=== PATIENT | female | born 1945 | race Caucasian/White ===

== ENCOUNTER 2019-07-01 14:37 | Outpatient (CLI) | payer MEDICARE, OTHER, SELFPAY ==
[2019-07-01 15:28] LABS: Basophils % 0.5 %; Eosinophils # 0.3 10^3/uL (0.0-0.8); Eosinophils % 4.4 %; Hematocrit 31.7 % (37.0-47.0); Hemoglobin 10.2 g/dL (11.5-15.3); Lymphocytes # 2.1 10^3/uL (0.8-4.8); Lymphocytes % 32.8 %; Mean Corpuscular HGB Conc 32.2 g/dL (30.0-36.0); Mean Corpuscular Hemoglobin 32.1 pg (28.0-34.0); Mean Corpuscular Volume 99.7 fL (81-99); Mean Platelet Volume 10.5 fL (7.4-10.4); Monocytes # 0.9 10^3/uL (0.2-0.9); Monocytes % 14.7 %; Neutrophils % 47.1 %; Nucleated Red Blood Cells % 0.3 %; Platelet Count 230 10^3/cmm (130-400); Red Blood Count 3.18 10^6/uL (4.1-5.3); Red Cell Distribution Width 14.6 % (12.1-15.1); White Blood Count 6.3 10^3/uL (4.0-10.0)
[2019-07-01 15:46] LABS: Thyroid Stimulating Hormone 1.92 uIU/mL (0.27-4.20)
[2019-07-02 08:11] LABS: PROTEIN, TOTAL 7.3 g/dL (6.1-8.1)
[2019-07-02 13:07] LABS: ALPHA 1 GLOBULIN 0.2 g/dL (0.2-0.3); ALPHA 2 GLOBULIN 0.7 g/dL (0.5-0.9); BETA 1 GLOBULIN 0.5 g/dL (0.4-0.6); BETA 2 GLOBULIN 0.3 g/dL (0.2-0.5); GAMMA GLOBULIN 1.6 g/dL (0.8-1.7)
== END 2019-07-01 14:38 | disposition home or self-care (01) ==
LOC: ONCMED 14:43
PROVIDERS: Family Provider Internal Medicine; PCP Internal Medicine; Visit Provider Internal Medicine Hematology & Oncology
DX: D64.9 Anemia, unspecified (principal)
CPT/HCPCS: 36415; 84155; 84165; 84443; 85025

== ENCOUNTER 2019-07-09 12:43 | Outpatient (CLI) | payer MEDICARE, OTHER, SELFPAY ==
--- NOTE | 2019-07-09 13:55 | ONC FU_ITS ---
Dr. Rodriguez follow up note Patient: Vivian Soriano Unit #: [id number]: 1945 Dicatated By: Blue Rodriguez M.D.Date of Visit:Jul 09, 2019 Onc Med Follow-up/Prog Note History of Present Illness: Mrs. Vivian Soriano, 74-year-old female with distant history of anemia, taking sublingual B12 supplement off and on for long time, history of oral iron supplements during , but never required blood transfusion, and she think her anemia was pretty mild, that's why never required any workup or attention. Has never seen house designer before.And this time her routine lab workup done on 07/17/2018 showed white blood count 6.7 hemoglobin 9.1 crit 27.8 platelets 231,000, MCV 94.3. Patient denies any palpitation, or shortness of breath or fatigue or generalized weakness. 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 Last colonoscopy and EGD was done in 2007, as per patient at that time she was told that she may have couple of bleeders in her stomach but nothing serious. Patient said she bought some fxxz-xht-xsnexec multivitamins called 'blood builder' and wants to try those Came for follow-up, denies any specific complaints, no nausea vomiting no fever no chills no melena hematochezia no hemoptysis no hematemesis no jaundice. No palpitation or shortness of breath. Tolerating B12 supplement/iron well Medications: Lisinopril 1 Tablet (of 5 mg) Oral daily, Mag-Tab SR 1 Tablet (of 84 mg (7meq) ) Tablet, controlled release Oral b.i.d., Multivitamin Adult 1 Tablet Oral daily, raNITIdine HCl 1 Tablet (of 150 mg) Oral daily PRN, Vitamin B Complex 1 Tablet Oral daily, Vitamin B12 1 Tablet Oral daily, Vitamin D3 1 Tablet Oral daily, Vitamin E 1 Capsule (of 400 Units) Oral daily Allergies: No Known Allergies. Review of Systems: Review of Systems is not available for this patient. Vital Signs: Performed on Jul 09, 2019 13:22 Height - 68.00 in Weight - 179.2 lbs (LOW) BSA - 1.95 sq.m BMI - 27.25 Temperature - 97.9 F (LOW) Pulse - 70 /min Respiration - 16 /min BP - 151/65 mm(hg) (HIGH) O2 Sat - 97 % Pain - 0 Fatigue - 5 Performance Status: 0 - Fully active, able to carry on all predisease activities without restrictions. (ECOG) Physical Examination: ENMT - No oral exudates, ulcers, masses, thrush or mucositis. Oropharynx clear. Tongue normal, Respiratory - Lungs are clear to auscultation without rhonchi or wheezing, Cardiovascular - Regular rate and rhythm of heart, Abdomen - Non-tender, non-distended, Good bowel sounds. No guarding or rebound tenderness. No pulsatile masses, Extremities - no edema. Lab/Imaging: Test performed on Jul 01, 2019 14:55 Protein, Total 7.3 g/dL TSH 1.92 uIU/mL WBC 6.3 10 3/uL RBC 3.18 10 6/uL HGB 10.2 g/dL HCT 31.7 % MCV 99.7 fL MCH 32.1 pg MCHC 32.2 g/dL RDW 14.6 % Platelet Count 230 10 3/cmm MPV 10.5 fL Neutrophils 3.0 10 3/uL Lymphocytes 2.1 10 3/uL Monocytes 0.9 10 3/uL Eosinophils 0.3 10 3/uL Basophils 0.0 10 3/uL Neutrophil % 47.1 % Lymphocyte % 32.8 % Monocyte % 14.7 % Eosinophil % 4.4 % Basophils % 0.5 % Test performed on Mar 11, 2019 11:35 Protein, SPE 6.7 g/dL Albumin, SPE 3.7 g/dL Erythropoietin 13.5 mIU/mL Jkuft-5-bbafdeai 0.2 g/dL Jxnft-7-hsujelhb 0.6 g/dL Beta Globulin 0.4 g/dL Beta 2 Globulin 0.3 g/dL Gamma Globulin 1.5 g/dL Test performed on Mar 11, 2019 09:30 Ferritin 268.0 ng/ml Iron 95 ug/dL % Iron Saturation 36.2 % UIBC 167 ug/dL Impression: Well compensated, Normocytic normochromic anemia, etiology unclear could be multifactorial including nutritional, combined B12/ iron deficiency, patient is on B12 and folic acid supplements for long time. Other possibility considering her age, could be underlying myelodysplasia or considering her [place] background, other possibility could be hemoglobinopathy.Other possibilities could be anemia of chronic disease, or due to medication Labs checked on 08/06/2018 showed reticulocyte count 3 normal being is 0.8-4.1. B12 942, folic acid more than 20, ferritin 326, iron saturation 12.2 normal being 20-50 Iron 37 normal being 37-145, TSH 1.68 Last colonoscopy/EGD was done in 2007, as per patient couple of polyps were removed from the colon and EGD shows couple of bleeders in the stomach but nothing serious. Next No history of blood transfusion Plan: Discussed with patient regarding her labs from 07/01/2019 white blood count 6.3 hemoglobin 10.2 crit 31.7 platelets 230, TSH 1.92 Clinically, patient doing well with well compensated normocytic normochromic anemia, follow-up lab shows mild/moderate anemia but stable, patient is on sublingual B12 and msug-yem-fwhosxj iron supplements, tolerating well. Patient prefer observation unless there is a drop in her hemoglobin then she may consider bone marrow evaluation. Return to clinic in 3 months with CBC Signed By: Blue Rodriguez M.D. <<Signature on File>>
== END 2019-07-09 12:44 | disposition home or self-care (01) ==
LOC: ONCMED 12:45
PROVIDERS: Family Provider Internal Medicine; PCP Internal Medicine; Visit Provider Internal Medicine Hematology & Oncology
DX: D64.9 Anemia, unspecified (principal); E53.8 Deficiency of other specified B group vitamins; Z79.899 Other long term (current) drug therapy
CPT/HCPCS: G0463

== ENCOUNTER 2019-10-09 09:34 | Outpatient (CLI) | payer MEDICARE, OTHER, SELFPAY ==
[2019-10-09 10:02] LABS: Basophils % 0.6 %; Eosinophils # 0.2 10^3/uL (0.0-0.8); Eosinophils % 2.9 %; Hematocrit 31.8 % (37.0-47.0); Lymphocytes # 1.9 10^3/uL (0.8-4.8); Lymphocytes % 28.6 %; Mean Corpuscular HGB Conc 31.4 g/dL (30.0-36.0); Mean Corpuscular Hemoglobin 31.2 pg (28.0-34.0); Mean Corpuscular Volume 99.1 fL (81-99); Mean Platelet Volume 10.5 fL (7.4-10.4); Monocytes # 0.8 10^3/uL (0.2-0.9); Monocytes % 12.6 %; Neutrophils # 3.6 10^3/uL (1.8-7.7); Nucleated Red Blood Cells % 0.3 %; Platelet Count 213 10^3/cmm (130-400); Red Blood Count 3.21 10^6/uL (4.1-5.3); Red Cell Distribution Width 14.7 % (12.1-15.1); White Blood Count 6.5 10^3/uL (4.0-10.0)
== END 2019-10-09 09:35 | disposition home or self-care (01) ==
PROVIDERS: PCP Internal Medicine; Visit Provider Internal Medicine Hematology & Oncology
DX: D64.9 Anemia, unspecified (principal)
CPT/HCPCS: 85025

== ENCOUNTER 2019-10-12 08:20 | Outpatient (CLI) | payer MEDICARE, OTHER, SELFPAY ==
--- NOTE | 2019-10-12 09:18 | ONC FU_ITS ---
Dr. Rodriguez follow up note Patient: Vivian Soriano Unit #: [id number]: 1945 Dicatated By: Blue Rodriguez M.D.Date of Visit:Oct 12, 2019 Onc Med Follow-up/Prog Note History of Present Illness: Mrs. Vivian Soriano, 74-year-old female with distant history of anemia, taking sublingual B12 supplement off and on for long time, history of oral iron supplements during , but never required blood transfusion, and she think her anemia was pretty mild, that's why never required any workup or attention. Has never seen shift manager before.And this time her routine lab workup done on 07/17/2018 showed white blood count 6.7 hemoglobin 9.1 crit 27.8 platelets 231,000, MCV 94.3. Patient denies any palpitation, or shortness of breath or fatigue or generalized weakness. 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 Last colonoscopy and EGD was done in 2007, as per patient at that time she was told that she may have couple of bleeders in her stomach but nothing serious. Patient said she bought some wnqw-zkp-yvmcazc multivitamins called 'blood builder' and wants to try those Came for follow-up, denies any specific complaints except left wrist pain/discomfort for couple of days, no left hand swelling, patient tried Advil and wrist brace, with that it is improving somewhat. No fever or chills, no nausea or vomiting, no diarrhea constipation, no melena or hematochezia, no hemoptysis or hematemesis, no jaundice, no palpitation or shortness of breath, energetic. And taking sshf-ycq-pevgxqk multivitamin and iron supplement. Medications: Lisinopril 1 Tablet (of 5 mg) Oral daily, Mag-Tab SR 1 Tablet (of 84 mg (7meq) ) Tablet, controlled release Oral b.i.d., Multivitamin Adult 1 Tablet Oral daily, raNITIdine HCl 1 Tablet (of 150 mg) Oral daily PRN, Vitamin B Complex 1 Tablet Oral daily, Vitamin B12 1 Tablet Oral daily, Vitamin D3 1 Tablet Oral daily, Vitamin E 1 Capsule (of 400 Units) Oral daily Allergies: No Known Allergies. Review of Systems: Constitutional - Appetite is good and weight is stable. No fever, chills, hot flashes, or night sweats. Energy level is fair, ENMT - No sinus congestion/drainage. No mouth sores. No sore throat or difficulty swallowing, Hematologic/Lymphatic - No abnormal bruising or bleeding, Respiratory - No shortness of breath. No cough. No pleuritic pain or hemoptysis, Cardiovascular - No angina pain. No palpitations. Pt states she has premature ventricular contraction , Gastrointestinal - No nausea or vomiting. No heartburn or acid reflux. No diarrhea or constipation. No blood in the stool or black stools, Genitourinary (F) - No dysuria or hematuria. No urinary frequency. No urgency or incontinence, Musculoskeletal - Positive for pain in left hand, Neurologic - No headache or dizziness. No numbness/paresthesias or other focal neurologic symptoms, Psychiatric - No anxiety or depression. No insomnia. Vital Signs: Performed on Oct 12, 2019 08:31 Height - 68.00 in Weight - 180.8 lbs (HIGH) BSA - 1.96 sq.m BMI - 27.49 Temperature - 98.0 F (LOW) Pulse - 76 /min Respiration - 18 /min BP - 135/81 mm(hg) O2 Sat - 97 % Pain - 9 Performance Status: 0 - Fully active, able to carry on all predisease activities without restrictions. (ECOG) Physical Examination: ENMT - No mouth sores, no thrush or jaundice, Respiratory - Lungs are clear, Cardiovascular - Regular rate and rhythm of heart, Abdomen - Soft, bowel sounds present, nontender. No visible edema Lab/Imaging: Test performed on Oct 09, 2019 09:42 WBC 6.5 10 3/uL RBC 3.21 10 6/uL HGB 10.0 g/dL HCT 31.8 % MCV 99.1 fL MCH 31.2 pg MCHC 31.4 g/dL RDW 14.7 % Platelet Count 213 10 3/cmm MPV 10.5 fL Neutrophils 3.6 10 3/uL Lymphocytes 1.9 10 3/uL Monocytes 0.8 10 3/uL Eosinophils 0.2 10 3/uL Basophils 0.0 10 3/uL Neutrophil % 55.0 % Lymphocyte % 28.6 % Monocyte % 12.6 % Eosinophil % 2.9 % Basophils % 0.6 % Test performed on Jul 01, 2019 14:55 Protein, Total 7.3 g/dL TSH 1.92 uIU/mL Impression: Well compensated, Normocytic normochromic anemia, etiology unclear could be multifactorial including nutritional, combined B12/ iron deficiency, patient is on B12 and folic acid supplements for long time. Other possibility considering her age, could be underlying myelodysplasia or considering her [place] background, other possibility could be hemoglobinopathy.Other possibilities could be anemia of chronic disease, or due to medication Labs checked on 08/06/2018 showed reticulocyte count 3 normal being is 0.8-4.1. B12 942, folic acid more than 20, ferritin 326, iron saturation 12.2 normal being 20-50 Iron 37 normal being 37-145, TSH 1.68 Last colonoscopy/EGD was done in 2007, as per patient couple of polyps were removed from the colon and EGD shows couple of bleeders in the stomach but nothing serious. Next No history of blood transfusion Plan: Discussed with patient regarding her labs white blood count 6.5 hemoglobin 10 hematocrit 31.8 platelets 213,000 MCV 99.1 Clinically, patient is doing well with no new signs symptom. She has well compensated normocytic normochromic anemia and etiology remained inconclusive as in the past iron studies, SPEP showed no abnormality. Considering her age, myelodysplasia was on the top of list causing persistent but stable normocytic anemia. Patient was recommended bone marrow evaluation but she declined. Again discussed today regarding bone marrow evaluation but patient is again declining knowing the risk involved with persistent mild/moderate anemia but she is not symptomatic and has well compensated anemia and rather prefer observation. Patient was also advised if she is not considering further testing or evaluation which include bone marrow evaluation then she can be followed by primary care physician with routine labs and in case there is further drop in her hemoglobin or she becomes symptomatic due to anemia then and if patient agreed, we can consider bone marrow evaluation to rule out underlying myelodysplasia causing this persistent but stable mild/moderate anemia. We will discuss her case with Dr. Ellison her primary care physician regarding follow-up plan or otherwise we will see her back in 6 months with CBC.^As far as left wrist pain/discomfort is concerned, patient said with Advil and wrist brace pain is somewhat better, if no further improvement she would see her primary care physician or my to go to urgent care for evaluation.] Signed By: Blue Rodriguze M.D. <<Signature on File>>
== END 2019-10-12 08:21 | disposition home or self-care (01) ==
LOC: ONCMED 08:24
PROVIDERS: PCP Internal Medicine; Visit Provider Internal Medicine Hematology & Oncology
DX: D64.9 Anemia, unspecified (principal); E53.8 Deficiency of other specified B group vitamins; Z87.19 Personal history of other diseases of the digestive system; M25.532 Pain in left wrist
CPT/HCPCS: G0463

== ENCOUNTER 2019-10-12 10:18 | Outpatient (CLI) | payer MEDICARE, OTHER, SELFPAY ==
--- NOTE | 2019-10-12 | XR_ITS ---
WS: [id number] WRIST LEFT TECHNIQUE: 3 views of the left wrist CLINICAL INFORMATION: WRIST PAIN ACUTE LEFT COMPARISON: None. FINDINGS: Normal radiocarpal joint. Narrowing of the distal radial ulnar joint. Scaphoid is normal in appearanc e. No evidence of radiocarpal dislocation. Distal radius and ulna are normal in appearance. XR/XR wrist LT min 3V* [id number] IMPRESSION: No acute fractures.
== END 2019-10-12 10:19 | disposition home or self-care (01) ==
LOC: RADOUTREAD 11:17
PROVIDERS: Family Provider Internal Medicine; PCP Internal Medicine; Visit Provider Nurse Practitioner
DX: Z53.9 Procedure and treatment not carried out, unspecified reason (principal)

== ENCOUNTER 2020-06-10 09:38 | Emergency (ER) | payer MEDICARE, OTHER, SELFPAY ==
[2020-06-10] VITALS (8 sets, daily range): BP systolic 114–159; BP diastolic 61–88; PULSE 66–84; RESP 16–23; TEMP 36.2; O2SAT 93–97; BMI 28.1
--- NOTE | 2020-06-10 10:06 | ECG_ITS ---
[facility] Test Date: 2020-06-10 Pat Name: Vivian Soriano Department: Room: Gender: Female Surgical Tech: : 1945 Requested By: Julio Otto Order Number: [id number] Jeronimo MD: Leonard Skinner M.D. Measurements Intervals [place] Rate: 78 P: 11 OH: 180 QRS: -22 QRSD: 87 T: 33 QT: 361 QTc: 413 Interpretive Statements SINUS RHYTHM POSSIBLE RIGHT VENTRICULAR CONDUCTION DELAY [RSR (QR) IN V1/V2] MODERATE VOLTAGE CRITERIA FOR LVH, CONSIDER NORMAL VARIANT [MEETS CRITERIA IN ONE OF: R(aVL), S(V1), R(V5), R(V5/V6)+S(V1)] POSSIBLE SEPTAL MYOCARDIAL INFARCTION , OF INDETERMINATE AGE [30 ms Q WAVE IN V1/V2] No previous ECG available for comparison Electronically Signed On 06-11-2020 10:58:42 RESIDENTIAL TEAM LEADER by Leonard Skinner M.D. [id number]
--- NOTE | 2020-06-10 10:06 | XR_ITS ---
WS: [id number] Portable AP upright chest, Clinical Data: cp Comparison: None. Findings: No nodules, masses or effusions are seen. The heart is normal. The pulmonary vascularity is not increased. No pneumonia or pneumothorax is seen. The aortic arch and descending aorta are tortuo us. There are calcified granulomas throughout both lungs. There is a calcification over the left grea ter tuberosity which may represent calcific bursitis or tendinitis. XR/XR chest 1V portable [id number] Impression: Old granulomatous disease and atherosclerosis.
--- NOTE | 2020-06-10 10:09 | W.ED.DIZZY ---
HPI - Dizziness General: Chief Complaint: Dizziness Stated Complaint: DIZZINESS(REMBERTO) HAD LOW BP, HAS UNCOMFY FEELING Time Seen by Provider: 06/10/20 09:54 History of Present Illness: HPI Narrative: Patient is a 75-year-old female comes to the ED with some chest pain. Chest pain started last night when she laid down to go to bed. She describes it more as a mild discomfort. It is located in the lower middle aspect of chest near epigastric region. Pain was worse when she was lying down. She says 2 days ago she was working out in her yard a lot and got a little tired towards the end of the day and she had low blood pressure reading at home. She also was feeling a little dizzy at the time. She went to sleep that night and woke up feeling better and her symptoms had resolved. A day later is when she started developing this chest discomfort. Patient did say that she noticed that chest pain started after she ate a strawberry rhubarb cake. Patient concerned about some cardiac cause for chest discomfort and came to the ED to get further evaluated. Denies any fever, chills, cough, shortness of breath, abdominal pain, nausea/vomiting, bladder or bowel symptoms. Associated symptoms: Reports chest pain; Denies chills, headache(s), nausea, nasal congestion, palpitations or vomiting Associated neuro symptoms: Deny numbness in extremities Review of Systems Const: Denies: fever(s), chills or fatigue Eyes: Denies: change in vision or eye discomfort ENMT: Denies: throat pain, odynophagia, nasal discharge or nasal congestion Card: Reports: chest pain; Denies: palpitations, edema, swelling of feet/ankles, dyspnea on exertion or orthopnea Resp: Denies: dyspnea, productive cough or non-productive cough GI: Reports: heartburn; Denies: abdominal pain, nausea, vomiting, diarrhea, constipation or hematochezia : Denies: flank pain, dysuria or hematuria Musc: Denies: neck pain, back pain or extremity swelling Skin/Breast: Denies: rash or new lesions Neuro: Denies: headache(s), numbness in extremities or weakness in extremities PFS ED PFSH: Medical History Carotid stenosis, bilateral HTN (hypertension) Usually around 120-130 Near syncope Normocytic normochromic anemia Premature ventricular contractions Tricuspid valve regurgitation Surgical History H/O tubal ligation (~1972) S/P colonoscopy with polypectomy Family History Other CAD (coronary artery disease) Cancer Diabetes Hyperlipidemia Stroke Social History Smoking and tobacco status: never smoked Alcohol intake: never Physical Exam Const: COMMON NORMALS: no acute distress, patient oriented x3, healthy appearing and alert GENERAL APPEARANCE: cooperative and comfortable HENMT: COMMON NORMALS: normocephalic HEAD & SCALP: normocephalic MOUTH: Normal oral and palatal mucosa present THROAT: posterior oropharynx normal and uvula midline Eye: COMMON NORMALS: Equal, round and reactive pupils present PUPIL: Yes Equal, round and reactive pupils present Neck/C-Spine: COMMON NORMALS: supple GENERAL: Yes normal visual inspection Chest: COMMONS NORMALS: normal palpation of entire chest wall Resp: COMMON NORMALS: normal respiratory effort, No retractions, No use of accessory muscles and clear to auscultation bilaterally EFFORT & INSPECTION: Yes able to speak in complete sentences, No tachypneic, No respiratory distress and No labored AUSCULTATION: clear to auscultation bilaterally Cardio: COMMON NORMALS: regular rate, regular rhythm, S1 normal heart sound present, S2 normal heart sound present, No gallops present (Cardio), No clicks present (Cardio), No murmurs present (Cardio) and Peripheral pulses 2+ throughout RATE: regular rate RHYTHM: regular rhythm HEART SOUNDS: S1 normal heart sound present and S2 normal heart sound present PERIPHERAL PULSES: Peripheral pulses 2+ throughout GI: COMMON NORMALS: Normal to inspection, nondistended, normoactive bowel sounds present, Soft to palpation, non-tender and no masses PALPATION: Yes Soft to palpation : COMMON NORMALS: Yes no CVA tenderness BLADDER/KIDNEY EXAM: Yes no CVA tenderness Back/Pelvis: COMMON NORMALS: no CVA tenderness Extremity: COMMON NORMALS: normal to inspection and no pedal edema Neuro: COMMON NORMALS: patient oriented x3 and moves all extremities SENSORIUM/ORIENTATION: Yes alert Skin: GENERAL SKIN EXAM: dry skin Course Reevaluation(s): Reevaluation #1: Patient says after GI cocktail her chest discomfort has resolved. Time: 11:08 Vital Signs: Vital signs: Vital Signs Temperature 97.2 F L 06/10/20 09:48 Pulse Rate 67 06/10/20 12:46 Respiratory Rate 16 06/10/20 12:46 Blood Pressure 122/61 06/10/20 12:46 Pulse Oximetry 97 06/10/20 12:46 MDM - Dizziness MDM Narrative: Medical decision making narrative: Patient is a 75-year-old female comes to the ED with chest discomfort. Located in the epigastric region and a mild and started after she some dessert the night before and when laying down in bed. Patient is a healthy appearing 75-year-old female in no acute distress. No significant exam findings. CBC and CMP were unremarkable. Troponin is negative EKG showed normal sinus rhythm with no signs of acute OK. Chest x-ray showed no acute findings. Patient was given a GI cocktail here in the ED and her chest pain resolved. Patient was diagnosed with noncardiac chest pain and acid reflux disease and sent with a prescription for Pepcid. Return to ED precautions given. Follow-up with PCP in 7 to 10 days. Patient stood agree with plan. Lab Data: Attestation: I reviewed the patient's lab results. Labs: Lab Results 06/10/20 06/10/20 06/10/20 Range/Units 10:18 10:20 10:20 WBC 8.8 (4.0-10.0) 10^3/ uL RBC 3.26 L (4.1-5.3) 10^6/u L Hgb 10.3 L (11.5-15.3) g/dL Hct 31.6 L (37.0-47.0) % MCV 96.9 (81-99) fL MCH 31.6 (28.0-34.0) pg MCHC 32.6 (30.0-36.0) g/dL RDW 14.8 (12.1-15.1) % Plt Count 235 (130-400) 10^3/c mm MPV 10.3 (7.4-10.4) fL Neut % (Auto) 55.6 % Lymph % (Auto) 28.1 % [place] % (Auto) 12.8 % Eos % (Auto) 2.5 % Baso % (Auto) 0.5 % Neut # (Auto) 4.87 (1.8-7.7) 10^3/u L Lymph # (Auto) 2.5 (0.8-4.8) 10^3/u L [place] # (Auto) 1.1 H (0.2-0.9) 10^3/u L Eos # (Auto) 0.2 (0.0-0.8) 10^3/u L Baso # (Auto) 0.0 (0.0-0.1) 10^3/u L Nucleated RBC % (a uto) 0 % Nucleated RBCs # 0.0 /100WBC Sodium 133 L (136-145) mmol/L Potassium 4.3 (3.5-5.1) mmol/L Chloride 101 (98-107) mmol/L Carbon Dioxide 25 (22-29) mmol/L Anion Gap 11.3 (5-19) BUN 20 (8-23) mg/dL Creatinine 0.9 (0.5-0.9) mg/dL GFR Calculation Not Reportable Glucose 115 (65-115) mg/dL Calculated Osmolal ity 280 L (285-295) mOsm/k g Calcium 9.8 (8.5-10.5) mg/dL Total Bilirubin 0.5 (0.15-1.2) mg/dL AST 17 (0-32) U/L ALT 12 (0-33) U/L Alkaline Phosphata se 64 (35-105) IU/L Troponin T Baselin e (0-10) ng/L Troponin T 120 Min stephanie (0-10) ng/L Delta Troponin T (0-10) ABS# NT-Pro-B Natriuret Pep 56 (0-450) pg/mL Total Protein 8.1 (6.6-8.7) g/dL Albumin 4.2 (3.5-5.2) g/dL Globulin 3.9 (1.3-4.6) g/dL Urine Color Yellow (Yellow) Urine Appearance Clear (CLEAR) Urine pH 5 (5-7) Ur Specific Gravit y 1.010 (1.005-1.030) Urine Protein Neg (Negative) Urine Glucose (UA) Norm (Normal) Urine Ketones Negative (Negative) Urine Blood Neg (Negative) Urine Nitrate Negative (Negative) Urine Bilirubin Neg (Negative) Urine Urobilinogen Norm (Negative) mg/dL Ur Leukocyte Marley ase Negative (Negative) Urine RBC 0-4 H (0-2) /hpf Urine WBC 0-4 H (0-5) /hpf Ur Squamous Epith Cells 0-4 H (0-5) /hpf Amorphous Sediment Not Reportable Urine Bacteria None (NONE) /hpf 06/10/20 06/10/20 Range/Units 10:20 12:01 WBC (4.0-10.0) 10^3/ uL RBC (4.1-5.3) 10^6/u L Hgb (11.5-15.3) g/dL Hct (37.0-47.0) % MCV (81-99) fL MCH (28.0-34.0) pg MCHC (30.0-36.0) g/dL RDW (12.1-15.1) % Plt Count (130-400) 10^3/c mm MPV (7.4-10.4) fL Neut % (Auto) % Lymph % (Auto) % [place] % (Auto) % Eos % (Auto) % Baso % (Auto) % Neut # (Auto) (1.8-7.7) 10^3/u L Lymph # (Auto) (0.8-4.8) 10^3/u L [place] # (Auto) (0.2-0.9) 10^3/u L Eos # (Auto) (0.0-0.8) 10^3/u L Baso # (Auto) (0.0-0.1) 10^3/u L Nucleated RBC % (a uto) % Nucleated RBCs # /100WBC Sodium (136-145) mmol/L Potassium (3.5-5.1) mmol/L Chloride (98-107) mmol/L Carbon Dioxide (22-29) mmol/L Anion Gap (5-19) BUN (8-23) mg/dL Creatinine (0.5-0.9) mg/dL GFR Calculation Glucose (65-115) mg/dL Calculated Osmolal ity (285-295) mOsm/k g Calcium (8.5-10.5) mg/dL Total Bilirubin (0.15-1.2) mg/dL AST (0-32) U/L ALT (0-33) U/L Alkaline Phosphata se (35-105) IU/L Troponin T Baselin e 13 H (0-10) ng/L Troponin T 120 Min stephanie 11.64 H (0-10) ng/L Delta Troponin T -1.36 L (0-10) ABS# NT-Pro-B Natriuret Pep (0-450) pg/mL Total Protein (6.6-8.7) g/dL Albumin (3.5-5.2) g/dL Globulin (1.3-4.6) g/dL Urine Color (Yellow) Urine Appearance (CLEAR) Urine pH (5-7) Ur Specific Gravit y (1.005-1.030) Urine Protein (Negative) Urine Glucose (UA) (Normal) Urine Ketones (Negative) Urine Blood (Negative) Urine Nitrate (Negative) Urine Bilirubin (Negative) Urine Urobilinogen (Negative) mg/dL Ur Leukocyte Marley ase (Negative) Urine RBC (0-2) /hpf Urine WBC (0-5) /hpf Ur Squamous Epith Cells (0-5) /hpf Amorphous Sediment Urine Bacteria (NONE) /hpf Imaging Data^: CXR: Attestation: I personally reviewed and interpreted this imaging study as follows: Radiologist's impression: [address] [address] XRay Report Signed Patient: Vivian Soriano Unit #: [id number] : 1945 Age/Sex: 75 / F ADM Date: 06/10/20 Loc: ER Room/Bed: Attending Dr: Ordering Provider/Ordering MD: Julio Otto Date of Service: 06/10/20 Procedure(s): XR chest 1V portable [id number] Accession Number(s): [id number] Report Number: [id number] WS: [id number] Portable AP upright chest, Clinical Data: cp Comparison: None. Findings: No nodules, masses or effusions are seen. The heart is normal. The pulmonary vascularity is not increased. No pneumonia or pneumothorax is seen. The aortic arch and descending aorta are tortuous. There are calcified granulomas throughout both lungs. There is a calcification over the left greater tuberosity which may represent calcific bursitis or tendinitis. XR/XR chest 1V portable [id number] Impression: Old granulomatous disease and atherosclerosis. Dictated By: Melodie Guerrero MD Signed By: Melodie Guerrero MD Signed Date/Time: 06/10/20 1018 DD/ 1017 EKG Data^: EKG 1: Attestation: I personally reviewed and interpreted this EKG as follows: EKG interpretation date: 06/10/20 Interpretation: Normal sinus rhythm, 70 bpm, no ST segment elevation or depression seen. EKG 2: Attestation: I personally reviewed and interpreted this EKG as follows: EKG interpretation date: 06/10/20 Interpretation: 2-hour EKG. Normal sinus rhythm, 62 bpm, no ST segment elevation or depression seen. Discharge Plan Discharge Patient Disposition: Home Clinical Impression: Chest pain, non-cardiac Acid reflux disease Qualifiers: Esophagitis presence: esophagitis presence not specified Qualified Code(s): K21.9 - Gastro-esophageal reflux disease without esophagitis Condition: Stable Prescriptions: New Pepcid 20 mg tablet 20 mg PO BID 28 Days Qty: 56 RF: 0 No Action magnesium L-lactate [Magtab] 84 mg tablet extended release 84 mg PO DAILY@07 RF: 0 multivitamin Tablet 1 tab PO DAILY@07 RF: 0 vitamin E (dl, acetate) 400 unit capsule 800 unit PO DAILY@07 RF: 0 lisinopril 10 mg tablet 5 mg PO DAILY@07 RF: 0 Discharge Orders: Discharge ED (Routine); Ordered 06/10/20 Ordered By: Julio Otto Referrals: Raphael Ellison DO [Primary Care Provider] - Discharge Diet: Regular Discharge Activity: Resume usual activity Patient Instructions: Gastroesophageal Reflux Disease (ED) Activity Restrictions/Additional Instructions: Follow-up with medical provider as directed within the next 1 to 2 weeks for reevaluation. Take medications as prescribed. Try to avoid spicy or acidic foods that can aggravate acid reflux symptoms. Return to the ER or your medical provider if condition worsens. Please read and understand discharge instructions. If any questions, please ask. Coding Level of Care Code ED Amphibious Operations Officer for Chg Fwd Exam Comprehensive
--- NOTE | 2020-06-10 10:25 | PC.NURSE ---
Denies Chest pain, Only discomfort, should of came in Saturday but I was too tired and sleepy
[2020-06-10 10:34] LABS: Basophils % 0.5 %; Eosinophils # 0.2 10^3/uL (0.0-0.8); Eosinophils % 2.5 %; Hematocrit 31.6 % (37.0-47.0); Hemoglobin 10.3 g/dL (11.5-15.3); Lymphocytes # 2.5 10^3/uL (0.8-4.8); Lymphocytes % 28.1 %; Mean Corpuscular HGB Conc 32.6 g/dL (30.0-36.0); Mean Corpuscular Hemoglobin 31.6 pg (28.0-34.0); Mean Corpuscular Volume 96.9 fL (81-99); Mean Platelet Volume 10.3 fL (7.4-10.4); Monocytes # 1.1 10^3/uL (0.2-0.9); Monocytes % 12.8 %; Neutrophils # 4.87 10^3/uL (1.8-7.7); Neutrophils % 55.6 %; Nucleated Red Blood Cells % 0 %; Platelet Count 235 10^3/cmm (130-400); Red Blood Count 3.26 10^6/uL (4.1-5.3); Red Cell Distribution Width 14.8 % (12.1-15.1); White Blood Count 8.8 10^3/uL (4.0-10.0)
[2020-06-10] MEDS: sodium chloride 0.9% 500 ML 999 ML IV (10:36)
[2020-06-10] MEDS: lidocaine 2% viscous 15 ML, aluminum-mag hydrox-simethicon 30 ML, sucralfate oral liq 1 GM PO (10:37)
[2020-06-10 11:00] LABS: Alanine Aminotransferase 12 U/L (0-33); Albumin Level 4.2 g/dL (3.5-5.2); Alkaline Phosphatase 64 IU/L (35-105); Anion Gap 11.3 (5-19); Aspartate Amino Transferase 17 U/L (0-32); Blood Urea Nitrogen 20 mg/dL (8-23); Calcium 9.8 mg/dL (8.5-10.5); Carbon Dioxide 25 mmol/L (22-29); Chloride 101 mmol/L (98-107); Globulin 3.9 g/dL (1.3-4.6); Glucose 115 mg/dL (65-115); NT Pro B Type Natriuretic Pept 56 pg/mL (0-450); Osmolality Calculated 280 mOsm/kg (285-295); Potassium 4.3 mmol/L (3.5-5.1); Sodium 133 mmol/L (136-145); Total Bilirubin 0.5 mg/dL (0.15-1.2); Total Protein 8.1 g/dL (6.6-8.7)
[2020-06-10 11:02] LABS: Bilirubin Urine Neg (Negative); Blood Urine Neg (Negative); Glucose Urine UA Norm (Normal); Ketones Urine Negative (Negative); Leukocyte Esterase Urine Negative (Negative); Nitrate Urine Negative (Negative); Protein Urine Neg (Negative); RBC Urine 0-4 /hpf (0-2); Squamous Epithelial Cell Urine 0-4 /hpf (0-5); Urine Appearance Clear (CLEAR); Urine Color Yellow (Yellow); Urobilinogen Urine Norm (Negative); WBC Urine 0-4 /hpf (0-5); pH Urine 5 (5-7)
[2020-06-10 11:23] LABS: Troponin(5th) Baseline 13 ng/L (0-10)
--- NOTE | 2020-06-10 12:06 | ECG_ITS ---
[facility] Test Date: 2020-06-10 Pat Name: Vivian Soriano Department: Room: Gender: Female Collections Assistant: : 1945 Requested By: Julio Otto Order Number: [id number] Jeronimo MD: Leonard Skinner M.D. Measurements Intervals Diamond Rate: 62 P: 12 NM: 179 QRS: -21 QRSD: 94 T: -5 QT: 414 QTc: 423 Interpretive Statements SINUS RHYTHM MODERATE VOLTAGE CRITERIA FOR LVH, CONSIDER NORMAL VARIANT [MEETS CRITERIA IN ONE OF: R(aVL), S(V1), R(V5), R(V5/V6)+S(V1)] POSSIBLE SEPTAL MYOCARDIAL INFARCTION , PROBABLY OLD [30 ms Q WAVE IN V1/V2] Compared to ECG 06/10/2020 10:20:21 No significant changes Electronically Signed On 06-11-2020 11:09:03 NURSE PRIVATE DUTY by Leonard Skinner M.D. [id number]
[2020-06-10 12:27] LABS: Troponin 5 2HR 11.64 ng/L (0-10)
[2020-06-10 12:28] LABS: Troponin 5 2HR Delta -1.36 ABS# (0-10)
== END 2020-06-10 12:49 | disposition home or self-care (01) ==
PROVIDERS: Emergency Provider Physician Assistant; PCP Internal Medicine
DX: R07.89 Other chest pain (principal); I10 Essential (primary) hypertension
CPT/HCPCS: 12345; 71045; 80053; 81001; 83880; 84484; 85025; 93005; 96360; 99283; 99284; J7040

== ENCOUNTER → 2023-12-13 07:48 | Outpatient (BNVA) | payer MEDICARE, OTHER, SELFPAY | PROVIDERS: PCP Internal Medicine; Visit Provider Nurse Practitioner Family | DX: D48.5 Neoplasm of uncertain behavior of skin (principal); L57.0 Actinic keratosis; S20.461A Insect bite (nonvenomous) of right back wall of thorax, initial encounter; X58.XXXA Exposure to other specified factors, initial encounter; L81.4 Other melanin hyperpigmentation; L82.1 Other seborrheic keratosis; D18.01 Hemangioma of skin and subcutaneous tissue | CPT/HCPCS: 11102; 17000; 99203 ==

== ENCOUNTER → 2024-01-29 14:30 | Outpatient (BNVA) | payer MEDICARE, OTHER, SELFPAY | PROVIDERS: PCP Internal Medicine; Visit Provider Dermatology | DX: D03.62 Melanoma in situ of left upper limb, including shoulder (principal); L44.8 Other specified papulosquamous disorders; L81.4 Other melanin hyperpigmentation | CPT/HCPCS: 99214 ==

== ENCOUNTER 2024-07-06 21:41 | Emergency (ER) | payer MEDICARE, OTHER, SELFPAY ==
--- NOTE | 2024-07-06 21:45 | XRR_ITS ---
PROCEDURE INFORMATION: Exam: XR Chest Exam date and time: 07/06/2024 9:53 PM Age: 79 years old Clinical indication: Pain; Chest pressure; Additional info: Cp TECHNIQUE: Imaging protocol: Radiologic exam of the chest. Views: 1 view. COMPARISON: CR XR chest 1V portable [id number] 06/10/2020 10:07 AM FINDINGS: Lungs: Unremarkable. No consolidation. Pleural spaces: Unremarkable. No pleural effusion. No pneumothorax. Heart/Mediastinum: Unremarkable. No cardiomegaly. Bones/joints: Unremarkable. XR/XR chest 1V portable [id number] IMPRESSION: No acute findings.
--- NOTE | 2024-07-06 21:49 | ECG_ITS ---
[facility] [employer] [facility] Test Date: 2024-07-06 Pat Name: Vivian Soriano Department: Room: Gender: Female Club Room Attendant: : 1945 Requested By: Manpreet Allen Order Number: [id number] Jeronimo MD: Leonard Skinner M.D. Measurements Intervals [place] Rate: 81 P: 2 MI: 188 QRS: 61 QRSD: 96 T: 2 QT: 376 QTc: 437 Interpretive Statements SINUS RHYTHM SEPTAL MYOCARDIAL INFARCTION , PROBABLY OLD [40+ ms Q WAVE IN V1/V2] Compared to ECG 06/10/2020 12:08:27 No significant changes Electronically Signed On 07-11-2024 18:14:13 DIRECTOR OF MATERIALS by Leonard Skinner M.D. [email or web address] [id number]
[2024-07-06 21:54] VITALS: BP 177/85; PULSE 84; RESP 18; TEMP 36.8; O2SAT 99
[2024-07-06 22:34] LABS: Basophils % 0.4 %; Eosinophils # 0.3 10^3/uL (0.0-0.8); Hematocrit 29.4 % (36-47); Lymphocytes # 3.5 10^3/uL (0.8-4.8); Lymphocytes % 32.7 %; Mean Corpuscular Hemoglobin 31.5 pg (27-33); Mean Corpuscular Volume 98.7 fl (85-98); Mean Platelet Volume 10.3 fL (7.4-10.4); Monocytes # 1.4 10^3/uL (0.2-0.9); Monocytes % 12.8 %; Neutrophils # 5.45 10^3/uL (1.8-7.7); Neutrophils % 50.4 %; Nucleated Red Blood Cells % 0.2 %; Platelet Count 243 10^3/cmm (157-399); Red Blood Count 2.98 10^6/uL (3.85-5.65); Red Cell Distribution Width 16.1 % (12.1-15.1); White Blood Count 10.81 10^3/uL (3.29-11.43)
[2024-07-06 22:50] LABS: INR 0.86 (0.8-1.2)
[2024-07-06 22:52] LABS: Alanine Aminotransferase 14 U/L (0-33); Alkaline Phosphatase 75 U/L (35-105); Anion Gap 13.8 (5-19); Aspartate Amino Transferase 21 U/L (0-32); Blood Urea Nitrogen 22 mg/dL (8-23); Carbon Dioxide 27 mmol/L (22-29); Chloride 102 mmol/L (98-107); Creatinine Clr Calc Pharmacy 45.5314; Globulin 3.3 g/dL (1.3-4.6); Glucose 159 mg/dL (65-115); Lipase 48 U/L (13-60); Osmolality Calculated 295 mOsm/kg (285-295); Potassium 3.8 mmol/L (3.5-5.1); Sodium 139 mmol/L (136-145); Total Bilirubin 0.3 mg/dL (0.15-1.2); Total Protein 7.3 g/dL (6.6-8.7)
[2024-07-06 22:54] LABS: Troponin(5th) Baseline 17 ng/L (0-10)
== END 2024-07-07 00:25 | disposition left against medical advice (07) ==
LOC: ER 21:50
PROVIDERS: Emergency Medicine; Emergency Provider Family Medicine; PCP Family Medicine
DX: R07.89 Other chest pain (principal); I21.9 Acute myocardial infarction, unspecified
CPT/HCPCS: 36415; 71045; 80053; 83690; 84484; 85025; 85610; 93005; 99285

== ENCOUNTER → 2024-11-13 08:41 | Outpatient (BNVA) | payer MEDICARE, OTHER, SELFPAY | PROVIDERS: PCP Family Medicine; Visit Provider Dermatology | DX: S40.812A Abrasion of left upper arm, initial encounter (principal); L57.8 Other skin changes due to chronic exposure to nonionizing radiation; C43.62 Malignant melanoma of left upper limb, including shoulder; L57.0 Actinic keratosis | CPT/HCPCS: 11606; 12034; 17000; 99213 ==

== ENCOUNTER → 2024-12-08 14:08 | Outpatient (BNVA) | payer MEDICARE, OTHER, SELFPAY | PROVIDERS: PCP Family Medicine; Visit Provider Internal Medicine Cardiovascular Disease | DX: I65.23 Occlusion and stenosis of bilateral carotid arteries (principal); I10 Essential (primary) hypertension; I49.3 Ventricular premature depolarization; I07.1 Rheumatic tricuspid insufficiency | CPT/HCPCS: 99204 ==

== ENCOUNTER 2024-12-16 07:26 | Outpatient (CLI) | payer MEDICARE, OTHER, SELFPAY ==
--- NOTE | 2024-12-16 07:45 | USCV_ITS ---
Vivian Soriano Age: 79 Gender: F : 1945 Exam Date: 12/16/2024 07:40 Ordering Phys: Dane Meza MD ([email or web address]) Technologist: R [place]am [place] [facility] [place] Indication: occlusion Risk Factors: Previous Vascular Surgery: Right Brachial BP: / Left Brachial BP: / Right Left Velocity (cm/s) Spectral Plaque Velocity (cm/s) Spectral Plaque Syst/Diast Broadening Syst/Diast Broadening 85.00/ 18.90 Prox CCA 77.90 / 19.70 78.30/ 19.20 Mid CCA 90.90 / 21.70 75.00/ 19.20 Distal CCA 82.60 / 21.40 66.20/ 15.60 Prox ICA 61.70 / 17.30 62.10/ 19.70 Mid ICA 96.10 / 34.70 69.60/ 17.80 Distal ICA 88.70 / 32.70 82.30 ECA 83.00 0.90 ICA/CCA 0.70 Antegrade Vertebral Antegrade 42.60/ 9.60 cm/s 44.90/ 14.10 cm/s Tri Subclavian Bi 92.20 149.2 0 CONCLUSIONS Right ICA stenosis <50%. Mild atheromatous plaque right carotid bulb/ICA. Left ICA stenosis <50%. Mild atheromatous plaque left carotid bulb/ICA. Intimal thickening in the common carotid arteries and internal carotid arteries bilaterally. Normal antegrade Doppler flow noted in the right vertebral artery. Normal antegrade Doppler flow noted in the left vertebral artery. Umer Moss MD (Electronically Signed) Final Date: 16 December 2024 12:42 S
== END 2024-12-16 07:27 | disposition home or self-care (01) ==
LOC: RAD 07:27
PROVIDERS: PCP Family Medicine; Visit Provider Internal Medicine Cardiovascular Disease
DX: I65.23 Occlusion and stenosis of bilateral carotid arteries (principal)
CPT/HCPCS: 93880

== ENCOUNTER → 2025-02-08 11:10 | Outpatient (BNVA) | payer MEDICARE, OTHER, SELFPAY | PROVIDERS: PCP Family Medicine; Visit Provider Dermatology | DX: L57.8 Other skin changes due to chronic exposure to nonionizing radiation (principal); L81.4 Other melanin hyperpigmentation; L82.1 Other seborrheic keratosis; D18.01 Hemangioma of skin and subcutaneous tissue; I83.93 Asymptomatic varicose veins of bilateral lower extremities; Z08 Encounter for follow-up examination after completed treatment for malignant neoplasm; Z85.820 Personal history of malignant melanoma of skin; L57.0 Actinic keratosis | CPT/HCPCS: 17000; 99213 ==